=== PATIENT | female | born 1980 | race Caucasian/White ===

== ENCOUNTER → 2020-05-09 11:36 | Outpatient (BNVA) | payer MEDICARE, MEDICAID, SELFPAY | PROVIDERS: Family Provider Family Medicine; Visit Provider Obstetrics & Gynecology | DX: O24.919 Unspecified diabetes mellitus in pregnancy, unspecified trimester (principal); R10.2 Pelvic and perineal pain; N72 Inflammatory disease of cervix uteri; E66.01 Morbid (severe) obesity due to excess calories; Z12.4 Encounter for screening for malignant neoplasm of cervix | CPT/HCPCS: 81000; 83036; 83525; 84443; 88175 ==

== ENCOUNTER → 2020-05-25 10:26 | Outpatient (BNVA) | payer MEDICARE, MEDICAID, SELFPAY | PROVIDERS: Family Provider Family Medicine; Visit Provider Obstetrics & Gynecology | DX: E66.01 Morbid (severe) obesity due to excess calories (principal) | CPT/HCPCS: 76830; 83525 ==

== ENCOUNTER → 2020-05-28 13:53 | Outpatient (BNVA) | payer MEDICARE, MEDICAID, SELFPAY | PROVIDERS: Family Provider Family Medicine; Visit Provider Obstetrics & Gynecology | DX: R87.620 Atypical squamous cells of undetermined significance on cytologic smear of vagina (ASC-US) (principal) | CPT/HCPCS: 88305 ==

== ENCOUNTER → 2020-09-05 09:52 | Outpatient (BNVA) | payer MEDICARE, MEDICAID, SELFPAY | PROVIDERS: Family Provider Family Medicine; Visit Provider Obstetrics & Gynecology | DX: E28.2 Polycystic ovarian syndrome (principal); R10.2 Pelvic and perineal pain; R87.610 Atypical squamous cells of undetermined significance on cytologic smear of cervix (ASC-US); E66.01 Morbid (severe) obesity due to excess calories | CPT/HCPCS: 76830 ==

== ENCOUNTER → 2022-06-09 08:33 | Outpatient (BNVA) | payer MEDICARE, MEDICAID, SELFPAY | PROVIDERS: Family Provider Family Medicine; Visit Provider Nurse Practitioner Women's Health | DX: Z01.419 Encounter for gynecological examination (general) (routine) without abnormal findings (principal) | CPT/HCPCS: 87624 ==

== ENCOUNTER 2022-06-19 10:19 | Outpatient (CLI) | payer MEDICARE, MEDICAID, SELFPAY ==
--- NOTE | 2022-06-19 10:36 | MM_ITS ---
WS: [id number] BILATERAL SCREENING DIGITAL TOMOSYNTHESIS MAMMOGRAM WITH CAD HISTORY: Z12.39 - Encounter for other screening for malignant neoplasm... COMPARISON: None available. Bilateral CC and MLO views with tomosynthesis and synthetic mammography submitted. Computer aided det ection analyzed. Breast composition: There are scattered areas of fibroglandular density. No suspicious masses, microc alcifications or architectural distortion. MM/[id number] IMPRESSION: BI-RADS: 1-Negative FOLLOW UP: 1 Year Follow-up
== END 2022-06-19 10:20 | disposition home or self-care (01) ==
LOC: RAD 10:27
PROVIDERS: PCP Family Medicine; Visit Provider Nurse Practitioner Women's Health
DX: Z12.31 Encounter for screening mammogram for malignant neoplasm of breast (principal)
CPT/HCPCS: 77063; 77067; 87624

== ENCOUNTER → 2023-06-09 10:28 | Outpatient (BNVA) | payer MEDICARE, MEDICAID, SELFPAY | PROVIDERS: PCP Family Medicine; Visit Provider Nurse Practitioner Women's Health | DX: N83.202 Unspecified ovarian cyst, left side (principal); Z98.890 Other specified postprocedural states | CPT/HCPCS: 76830 ==

== ENCOUNTER → 2023-07-14 10:22 | Outpatient (BNVA) | payer MEDICARE, MEDICAID, SELFPAY | PROVIDERS: PCP Family Medicine; Visit Provider Nurse Practitioner Women's Health | DX: N83.202 Unspecified ovarian cyst, left side (principal); Z98.890 Other specified postprocedural states | CPT/HCPCS: 76830 ==

== ENCOUNTER 2023-09-04 15:24 | Outpatient (CLI) | payer MEDICARE, SELFPAY ==
--- NOTE | 2023-09-04 15:26 | MM_ITS ---
WS: [id number] BILATERAL SCREENING DIGITAL TOMOSYNTHESIS MAMMOGRAM WITH CAD HISTORY: SCREENING COMPARISON: 06/19/2022 Bilateral CC and MLO views with tomosynthesis and synthetic mammography submitted. Computer aided det ection analyzed. Breast composition: There are scattered areas of fibroglandular density. No suspicious masses, microc alcifications or architectural distortion. MM/[id number] IMPRESSION: BI-RADS: 1-Negative FOLLOW UP: 1 Year Follow-up
== END 2023-09-04 15:25 | disposition home or self-care (01) ==
PROVIDERS: PCP Family Medicine; Visit Provider Family Medicine
DX: Z12.31 Encounter for screening mammogram for malignant neoplasm of breast (principal)
CPT/HCPCS: 77063; 77067

== ENCOUNTER 2023-11-03 15:54 | Outpatient (RCR) | payer MEDICARE, MEDICAID, SELFPAY | END 2023-11-07 18:00 | disposition home or self-care (01) | LOC: SPT 15:54 | PROVIDERS: Visit Provider Obstetrics & Gynecology | DX: M62.89 Other specified disorders of muscle (principal); M62.838 Other muscle spasm | CPT/HCPCS: 97161 ==

== ENCOUNTER 2023-11-08 06:30 | Outpatient (RCR) | payer MEDICARE, MEDICAID, SELFPAY | END 2023-11-25 23:59 | disposition home or self-care (01) | LOC: SPT 06:30 | PROVIDERS: Visit Provider Obstetrics & Gynecology | DX: M62.89 Other specified disorders of muscle (principal) | CPT/HCPCS: 97530 ==

== ENCOUNTER 2024-02-21 13:07 | Inpatient (IN) | payer MEDICARE, MEDICAID, SELFPAY ==
[2024-02-21] VITALS (11 sets, daily range): BP systolic 147–180; BP diastolic 67–120; PULSE 72–107; RESP 12–19; TEMP 36.6–37.4; O2SAT 96–100; BMI 26.5
[2024-02-21 13:24] LABS: Glucose Point of Care 108 mg/dL (70-110)
--- NOTE | 2024-02-21 13:25 | XRR_ITS ---
PROCEDURE INFORMATION: Exam: XR Chest Exam date and time: 02/21/2024 1:36 PM Age: 43 years old Clinical indication: Other: Weakness TECHNIQUE: Imaging protocol: Radiologic exam of the chest. Views: 1 view. COMPARISON: No relevant prior studies available. FINDINGS: Lungs: Unremarkable. No consolidation. Pleural spaces: Unremarkable. No pleural effusion. No pneumothorax. Heart/Mediastinum: Unremarkable. No cardiomegaly. Bones/joints: Unremarkable. XR/XR chest 1V portable [id number] IMPRESSION: No acute findings.
--- NOTE | 2024-02-21 13:30 | ECG_ITS ---
[facility] Test Date: 2024-02-21 Pat Name: Ashley Sullivan Department: Room: Gender: Female [employer]or: : 1980 Requested By: Bonita Bernard Order Number: [id number] Gaurav MD: Bryan Tarango M.D. Measurements Intervals [place] Rate: 69 P: 68 MO: 148 QRS: 46 QRSD: 85 T: 60 QT: 410 QTc: 441 Interpretive Statements SINUS RHYTHM No previous ECG available for comparison Electronically Signed On 02-21-2024 22:33:19 RN TRANSFER by Bryan Tarango M.D. [id number]
--- NOTE | 2024-02-21 13:30 | CTR_ITS ---
PROCEDURE INFORMATION: Exam: CT Head Without Contrast Exam date and time: 02/21/2024 1:34 PM Age: 43 years old Clinical indication: Stroke-like symptoms; Altered mental status/memory loss and drowsines/somnolence; Additional info: Symptoms of acute stroke TECHNIQUE: Imaging protocol: Computed tomography of the head without contrast. Radiation optimization: All CT scans at this facility use at least one of these dose optimization techniques: automated exposure control; mA and/or kV adjustment per patient size (includes targeted exams where dose is matched to clinical indication); or iterative reconstruction. Other technique: STROKE PROTOCOL was implemented. COMPARISON: No relevant prior studies available. RADIATION DOSE METRICS: Total DLP (mGy-cm): 1033.58 FINDINGS: Brain: No hemorrhage. Unremarkable white matter. No mass effect. Cerebral ventricles: No ventriculomegaly. Paranasal sinuses: Visualized sinuses are unremarkable. No fluid levels. Mastoid air cells: Visualized mastoid air cells are well aerated. Bones: Unremarkable. No acute fracture. Soft tissues: Unremarkable. CT/CT head thrombolytic [id number] IMPRESSION: No acute intracranial abnormality. ASSESSMENT: ASPECTS (Bárbara Stroke Program Early CT Score) is 10.
--- NOTE | 2024-02-21 13:33 | W.ED.WEAKNES ---
HPI - Weakness General: Chief complaint: Weakness Stated complaint: weakness, tingling in rt arm Time Seen by Provider: 02/21/24 13:24 Source: patient Mode of arrival: ambulatory Limitations: no limitations History of Present Illness: 43-year-old female is here with multiple complaints she states she has not felt well since Thursday states she has had generalized fatigue she has been having some diffuse abdominal cramping low-grade fevers and weakness. Patient states she woke up this morning was having some numbness and weakness states she got a fight with her dad while they are trying to find the ER and had sudden onset of not able to move her legs or walk and slurred speech. She states she is also has had headaches. Associated symptoms: Denies chest pain, chills, fever(s), headache(s), nausea or vomiting Review of Systems Const: Reports: fatigue and malaise; Denies: fever(s), chills, body aches or change in appetite Eyes: Denies: blurry vision or eye discomfort ENMT: Denies: throat pain or dental pain Card: Denies: chest pain Resp: Denies: dyspnea GI: Denies: abdominal pain, nausea, vomiting or diarrhea Musc: Denies: neck pain or back pain Skin/Breast: Denies: rash Neuro: Reports: numbness in extremities, weakness in extremities and Slurred speech present; Denies: headache(s) PFS ED PFSH: Family History Mother Hypertension Grandmother Uterine cancer paternal Diabetes maternal Ovarian cyst maternal Father Hypertension Denies family history of Clotting disorder Hyperlipidemia Chronic kidney disease (CKD) Anesthesia complication Bleeding disorder Cancer Stroke Social History Smoking and tobacco/nicotine status: light tobacco/nicotine user Physical Exam Const: COMMON NORMALS: patient oriented x3 and alert ORIENTATION/CONSCIOUSNESS: Yes oriented to person, Yes oriented to place and Yes oriented to time HENMT: COMMON NORMALS: normocephalic and atraumatic HEAD & SCALP: normocephalic and atraumatic Eye: COMMON NORMALS: Equal, round and reactive pupils present and EOMs intact bilaterally PUPIL: Yes Equal, round and reactive pupils present Neck/C-Spine: COMMON NORMALS: full ROM and supple Chest: COMMONS NORMALS: normal inspection of the chest and normal palpation of entire chest wall Resp: COMMON NORMALS: normal respiratory effort, No retractions, No use of accessory muscles and clear to auscultation bilaterally AUSCULTATION: clear to auscultation bilaterally Cardio: COMMON NORMALS: regular rate, regular rhythm and No murmurs present (Cardio) RATE: regular rate RHYTHM: regular rhythm GI: COMMON NORMALS: Normal to inspection, nondistended, normoactive bowel sounds present, Soft to palpation, non-tender and no masses PALPATION: Yes Soft to palpation Extremity: COMMON NORMALS: normal to inspection and full ROM Neuro: COMMON NORMALS: patient oriented x3 and deep tendon reflexes 2+ bilaterally SENSORIUM/ORIENTATION: Yes alert, Yes oriented to person, Yes oriented to place and Yes oriented to time CRANIAL NERVES: Yes CN normal except as noted Psych: COMMON NORMALS: mental status grossly normal, Normal thought process present and cooperative THOUGHT PROCESS: Normal thought process present Skin: COMMON NORMALS: no rashes or lesions noted and no wounds GENERAL SKIN EXAM: no rashes or lesions noted Procedures Lumbar Puncture Time Out Performed: Yes Patient Position: left lateral decubitus Skin Prep: Povidone-Iodine 1% Local Anesthetic: lidocaine 1% Amount of anesthesia used (mL): 4 Spinal Needle Gauge: 22G Interspace Used: L4-L5 Fluid Initially Obtained: clear Complications: none Course Vital Signs: Vital signs: Vital Signs Temperature 98.6 F 02/21/24 17:30 Pulse Rate 75 02/21/24 14:50 Respiratory Rate 12 02/21/24 14:50 Blood Pressure 174/100 02/21/24 15:45 Pulse Oximetry 96 02/21/24 16:30 Oxygen Delivery Me thod Room Air 02/21/24 13:11 MDM - Weakness Medical Decision Making Patient presents here with generalized weakness not feeling well then after getting argument she had onset of diffuse weakness and some right-sided facial paresthesias. Patient was evaluated by neuro she is not a lytic candidate her head CT CTA is normal he did recommend admission for MRI she has had some headaches does have an elevated white count did perform an LP no whites were seen spoke to the hospitalist will admit at this time. Medical Records I reviewed the patient's medical records. Lab Data I reviewed the patient's lab results. 02/21/24 13:55 02/21/24 17:05 Radiology Impressions Chest X-Ray 02/21/24 13:25 IMPRESSION: No acute findings. Head CT 02/21/24 13:30 IMPRESSION: No acute intracranial abnormality. ASSESSMENT: ASPECTS (Bárbara Stroke Program Early CT Score) is 10. ADDENDUM: 02/21/24 1348 THIS REPORT CONTAINS FINDINGS THAT MAY BE CRITICAL TO PATIENT CARE. The findings were verbally communicated via telephone conference with TIFFANY Chance at 1:46 PM [employer] on 02/21/2024. The findings were acknowledged and understood. Head/Neck CTA 02/21/24 14:43 IMPRESSION: No large vessel stenosis or occlusion. IMPRESSION: No stenosis or occlusion. REFERENCES: NASCET CRITERIA. The degree of stenosis in the cervical segment of the internal carotid artery is based on NASCET criteria. Normal is no stenosis. Mild is less than 50% stenosis. Moderate is 50-69% stenosis. Severe is 70% to 99% stenosis. Total occlusion is no detectable patent lumen. ADDENDUM: 02/21/24 1530 THIS REPORT CONTAINS FINDINGS THAT MAY BE CRITICAL TO PATIENT CARE. The findings were verbally communicated via telephone conference with TIFFANY CHANCE at 3:27 PM [employer] on 02/21/2024. The findings were acknowledged and understood. ADDENDUM: 02/21/24 1547 THIS REPORT CONTAINS FINDINGS THAT MAY BE CRITICAL TO PATIENT CARE. The findings were verbally communicated via telephone conference with TIFFANY BAEZ at 3:44 PM [employer] on 02/21/2024. The findings were acknowledged and understood. Laboratory Results WBC 23.90 10^3/uL (3.29-11.43) H 02/21/24 13:55 RBC 5.31 10^6/uL (3.85-5.65) 02/21/24 13:55 Hgb 16.20 g/dL (11.27-16.99) 02/21/24 13:55 Hct 46.5 % (36-47) 02/21/24 13:55 MCV 87.6 fl (85-98) 02/21/24 13:55 MCH 30.5 pg (27-33) 02/21/24 13:55 MCHC 34.8 g/dL (30-55) 02/21/24 13:55 RDW 12.5 % (12.1-15.1) 02/21/24 13:55 Plt Count 444 10^3/cmm (157-399) H 02/21/24 13:55 MPV 9.4 fL (7.4-10.4) 02/21/24 13:55 Neut % (Auto) 78.3 % 02/21/24 13:55 Lymph % (Auto) 13.0 % 02/21/24 13:55 Sullivan % (Auto) 7.9 % 02/21/24 13:55 Eos % (Auto) 0.0 % 02/21/24 13:55 Baso % (Auto) 0.3 % 02/21/24 13:55 Neut # (Auto) 18.71 10^3/uL (1.8-7.7) H 02/21/24 13:55 Lymph # (Auto) 3.1 10^3/uL (0.8-4.8) 02/21/24 13:55 Sullivan # (Auto) 1.9 10^3/uL (0.2-0.9) H 02/21/24 13:55 Eos # (Auto) 0.0 10^3/uL (0.0-0.8) 02/21/24 13:55 Baso # (Auto) 0.1 10^3/uL (0.0-0.1) 02/21/24 13:55 Nucleated RBC % (auto) 0 % 02/21/24 13:55 Nucleated RBCs # 0.0 /100WBC 02/21/24 13:55 PT Cancelled 02/21/24 13:55 INR Cancelled 02/21/24 13:55 APTT Cancelled 02/21/24 13:55 Sodium 137 mmol/L (136-145) 02/21/24 17:05 Potassium Cancelled 02/21/24 13:55 Chloride Cancelled 02/21/24 13:55 Carbon Dioxide 22 mmol/L (22-29) 02/21/24 17:05 Anion Gap Cancelled 02/21/24 13:55 BUN 9 mg/dL (6-20) 02/21/24 17:05 Creatinine 0.5 mg/dL (0.5-0.9) 02/21/24 17:05 GFR Calculation Cancelled 02/21/24 13:55 Glucose 94 mg/dL (65-115) 02/21/24 17:05 POC Glucose 108 mg/dL (70-110) 02/21/24 13:20 Calculated Osmolality Cancelled 02/21/24 13:55 Calcium 9.5 mg/dL (8.5-10.5) 02/21/24 17:05 Total Bilirubin Cancelled 02/21/24 13:55 AST Cancelled 02/21/24 13:55 ALT 14 U/L (0-33) 02/21/24 17:05 Alkaline Phosphatase Cancelled 02/21/24 13:55 Total Protein 7.6 g/dL (6.6-8.7) 02/21/24 17:05 Albumin 4.5 g/dL (3.5-5.2) 02/21/24 17:05 Globulin 3.1 g/dL (1.3-4.6) 02/21/24 17:05 TSH 1.66 uIU/mL (0.27-4.20) 02/21/24 17:05 HCG, Qual Negative (Negative) 02/21/24 13:55 CSF Appearance Clear (CLEAR) 02/21/24 16:01 CSF Color Colorless (COLORLESS) 02/21/24 16:01 CSF WBC 2 /uL (0-5) 02/21/24 16:01 CSF RBC 1 10^3/uL (0-0) H 02/21/24 16:01 CSF Mononuclear # Auto 0.001 10^3/uL (50-90) L 02/21/24 16:01 CSF Mononuclear WBCs % 50 % (50-90) 02/21/24 16:01 CSF Polynuclear WBCs # 0.001 10^3/uL (0-10) 02/21/24 16:01 CSF Polynuclear WBCs % 50 % (0-10) H 02/21/24 16:01 CSF Diff Comment Yes 02/21/24 16:01 CSF Glucose 57 mg/dL (40-70) 02/21/24 16:01 CSF Total Protein 36 mg/dL (15-45) 02/21/24 16:01 All radiology interpretation(s) finalized by discharge EKG Data EKG 1: I personally reviewed and interpreted this EKG as follows: EKG interpretation date: 02/21/24 EKG interpretation time: 13:30 Interpretation: nsr hr [address] or t wave abnormalities qrs 85 qtc 429 Discharge Plan Discharge Patient Disposition: Admitted As Inpatient Clinical Impression: Generalized weakness, Paresthesias, Leukocytosis Condition: Stable Prescriptions: No Action albuterol sulfate 90 mcg/actuation HFA aerosol inhaler 2 puff inhalation Q6H PRN solifenacin [Vesicare] 5 mg tablet 5 mg PO DAILY Qty: 30 0RF gjjzszudio-hvwvrwmhuckva-yxyk 50-325-40 mg tablet 1 tab PO Q4H PRN diclofenac sodium 75 mg tablet,delayed release (DR/EC) 75 mg PO BID hydroxyzine pamoate [Vistaril] 25 mg capsule 25 mg PO BID PRN tizanidine [Zanaflex] 4 mg capsule 4 mg PO TID PRN Ozempic 1 mg/dose (4 mg/3 mL) pen injector SUBCUT .once weekly Coding Level of Care Code ED Planning Associate for Chg Fwd Related Data Home Medications Medication Instructions Recorded Confirmed albuterol sulfate 90 mcg/actuation 2 puff inhalation Q6H PRN 05/09/20 11/17/23 aerosol inhaler dianqvyxrz-hnfroudwxqiqu-xovbuxll 1 tab PO Q4H PRN 06/09/22 11/17/23 50 mg-325 mg-40 mg tablet diclofenac sodium 75 mg 75 mg PO BID 06/09/22 11/17/23 tablet,delayed release hydroxyzine pamoate 25 mg capsule 25 mg PO BID PRN 06/09/22 11/17/23 (Vistaril) tizanidine 4 mg capsule (Zanaflex) 4 mg PO TID PRN 06/09/22 11/17/23 semaglutide 1 mg/dose (4 mg/3 mL) mg SUBCUT .once weekly 07/14/23 11/17/23 subcutaneous pen injector (Ozempic) Previous Rx's Medication Instructions Recorded solifenacin 5 mg tablet (Vesicare) 5 mg PO DAILY #30 tabs 07/21/23 Allergies Allergy/AdvReac Type Severity Reaction Status Date / Time No Known Allergies Allergy Verified 02/21/24 13:21 NIH stroke score NIHSS Level Of Consciousness - 1a: 0 Level Of Consciousness Questions - 1b: Both Correct Level Of Consciousness Commands - 1c: Both Correct Best Gaze - 2: Normal Visual Harkins - 3: No Visual Loss Facial Palsy - 4: Minor Paralysis Motor Arm Right - 5: No Drift Motor Arm Left - 5: No Drift Motor Leg Right - 6: Drift Motor Leg Left - 6: Drift Limb Ataxia - 7: Absent Sensory - 8: Normal Best Language - 9: No Aphasia Dysarthia - 10: Mild/Moderate Dysarthia Extinction And Inattention - 11: 0 Score Total Score: 4
[2024-02-21 14:10] LABS: Basophils # 0.1 10^3/uL (0.0-0.1); Basophils % 0.3 %; Hematocrit 46.5 % (36-47); Lymphocytes # 3.1 10^3/uL (0.8-4.8); Mean Corpuscular HGB Conc 34.8 g/dL (30-55); Mean Corpuscular Hemoglobin 30.5 pg (27-33); Mean Corpuscular Volume 87.6 fl (85-98); Mean Platelet Volume 9.4 fL (7.4-10.4); Monocytes # 1.9 10^3/uL (0.2-0.9); Monocytes % 7.9 %; Neutrophils # 18.71 10^3/uL (1.8-7.7); Neutrophils % 78.3 %; Nucleated Red Blood Cells % 0 %; Platelet Count 444 10^3/cmm (157-399); Red Blood Count 5.31 10^6/uL (3.85-5.65); Red Cell Distribution Width 12.5 % (12.1-15.1)
[2024-02-21 14:33] LABS: HCG, Serum Qual Negative (Negative)
--- NOTE | 2024-02-21 14:43 | CTR_ITS ---
PROCEDURE INFORMATION: Exam: CTA Head With Contrast, Arteriography Exam date and time: 02/21/2024 2:59 PM Age: 43 years old Clinical indication: Stroke-like symptoms; Altered mental status/memory loss; Additional info: CVA TECHNIQUE: Imaging protocol: Computed tomographic angiography of the head with contrast. Exam focused on the arteries. 3D rendering (Not supervised by radiologist): MIP and/or 3D reconstructed images were created by the technologist. Radiation optimization: All CT scans at this facility use at least one of these dose optimization techniques: automated exposure control; mA and/or kV adjustment per patient size (includes targeted exams where dose is matched to clinical indication); or iterative reconstruction. Contrast material: OMNIPAQUE 350; Contrast volume: 100 ml; Contrast route: INTRAVENOUS (IV); COMPARISON: CT head thrombolytic [id number] 02/21/2024 1:34 PM RADIATION DOSE METRICS: Total DLP (mGy-cm): 485.2 FINDINGS: ANTERIOR CIRCULATION: Right internal carotid artery: Intracranial segment is patent with no significant stenosis. No aneurysm. Right middle cerebral artery: No occlusion or significant stenosis. No aneurysm. Right anterior cerebral artery: No occlusion or significant stenosis. No aneurysm. Left internal carotid artery: Intracranial segment is patent with no significant stenosis. No aneurysm. Left middle cerebral artery: No occlusion or significant stenosis. No aneurysm. Left anterior cerebral artery: No occlusion or significant stenosis. No aneurysm. POSTERIOR CIRCULATION: Right vertebral artery: No occlusion or significant stenosis. No aneurysm. Left vertebral artery: No occlusion or significant stenosis. No aneurysm. Basilar artery: No occlusion or significant stenosis. No aneurysm. Right posterior cerebral artery: No occlusion or significant stenosis. No aneurysm. Left posterior cerebral artery: No occlusion or significant stenosis. No aneurysm. Brain: No definite mass, mass effect, or midline shift. Cerebral ventricles: No ventriculomegaly. Bones/joints: Unremarkable. Soft tissues: Unremarkable. PROCEDURE INFORMATION: Exam: CTA Neck With Contrast Exam date and time: 02/21/2024 2:59 PM Age: 43 years old Clinical indication: Stroke-like symptoms; Altered mental status/memory loss; Additional info: CVA TECHNIQUE: Imaging protocol: Computed tomographic angiography of the neck with contrast. Exam focused on the cervical segments of the vasculature. 3D rendering (Not supervised by radiologist): MIP and/or 3D reconstructed images were created by the technologist. Radiation optimization: All CT scans at this facility use at least one of these dose optimization techniques: automated exposure control; mA and/or kV adjustment per patient size (includes targeted exams where dose is matched to clinical indication); or iterative reconstruction. Contrast material: OMNIPAQUE 350; Contrast volume: 100 ml; Contrast route: INTRAVENOUS (IV); COMPARISON: CT head thrombolytic [id number] 02/21/2024 1:34 PM RADIATION DOSE METRICS: Total DLP (mGy-cm): 485.2 FINDINGS: Right common carotid artery: No stenosis. No dissection or occlusion. Right internal carotid artery: No stenosis of the extracranial segment. No dissection or occlusion. Right external carotid artery: No occlusion or stenosis of the origin. Left common carotid artery: No stenosis. No dissection or occlusion. Left internal carotid artery: No stenosis of the extracranial segment. No dissection or occlusion. Left external carotid artery: No occlusion or stenosis of the origin. Right vertebral artery: No stenosis. No dissection or occlusion. Left vertebral artery: No stenosis. No dissection or occlusion. Soft tissues: Minimal right apical subpleural cystic changes. No significant soft tissue swelling. Bones/joints: No acute fracture. CT/CT angio headneck* [id number] IMPRESSION: No large vessel stenosis or occlusion. IMPRESSION: No stenosis or occlusion. REFERENCES: NASCET CRITERIA. The degree of stenosis in the cervical segment of the internal carotid artery is based on NASCET criteria. Normal is no stenosis. Mild is less than 50% stenosis. Moderate is 50-69% stenosis. Severe is 70% to 99% stenosis. Total occlusion is no detectable patent lumen.
[2024-02-21] MEDS: aspirin 81 mg Chew Tablet 324 MG PO (14:55)
[2024-02-21] MEDS: iohexol 350 mg/mL 500 mL Btl (per mL) IV (15:03)
[2024-02-21] MEDS: metoclopramide 5 mg/mL SDV 2 mL 10 MG IVP (15:19)
[2024-02-21] MEDS: diphenhydrAMINE 50 mg/mL SDV 1mL IVP (15:19)
[2024-02-21 16:08] LABS: Cyto Order Verification No Order
[2024-02-21 16:20] LABS: Appearance CSF CLEAR (CLEAR); Color CSF COLORLESS (COLORLESS)
[2024-02-21 16:21] LABS: CSF Mononuclear # 0.001 10^3/uL (50-90); Mononuclear WBC CSF % 50 % (50-90); Polynuclear Cells ,CSF # 0.001 10^3/uL (0-10); Polynuclear WBC CSF % 50 % (0-10); Red Blood Cell CSF 1 10^3/uL (0-0); White Blood Cell CSF 2 /uL (0-5)
[2024-02-21 16:22] LABS: Pathology Referral Yes
[2024-02-21 16:36] LABS: Glucose CSF 57 mg/dL (40-70); Total Protein CSF 36 mg/dL (15-45)
--- NOTE | 2024-02-21 17:32 | P.HP_ITS ---
Providers/Chief Complaint 2 Chief Complaint: weakness, tingling in rt arm History of Present Illness Ashley Sullivan is a 43 year old female who is presenting to the ER today with neurological symptoms. She started feeling sick on Thursday (today is Thursday) when she developed abdominal pain, and dry heaving. She thought she had viral gastritis as her father had been experiencing similar symptoms. SHe was taken to ER on Thursday and was discharged from there. She was coming in to ER here today as she was having persisting symptoms. While outside the hospital, she had a fight with her father in the car related to finding location of the ER. She started o become very angry and felt out of control. Then she developed right side facial numbness and weakness. She states she couldnt move her arms and legs and needed 2 people to get her out of the car. She was like a statue . Her speech remained clear though pressured. This was a new change for her. She has never had symptoms like this before. She has been under a lot of stress recently going througha divorce. She startefd to cry during the interview, then seen becoming angry and agitated that her ex wont leave her alone . she is currently living with her parents. she then starts to cry because her mom has been diagnosed with a brain blockage and needs an mri. she becomes tearful , brings her hands to her face, covers her face ans states she doesnt want her mom to . Her sister is currently going through a divorce and seeing her in this situation is triggering a PTSD for her. She requests diazpeam and tizanidine. she keeps crying stating she is under a lot of stress and that its all too much . Her mother states she has been under tremendous stress recently. PMH of being on semaglutide for weight loss, h/o hysterectomy several years ago, h/o ovarian cyts . no known h/o stroke, a afib, HTN h/o dyslipidemia + Review of Systems 2 General: Reports: 10 or more systems reviewed and unremarkable except in HPI and below Const: Denies: fever(s), chills or body aches Eyes: Denies: change in vision, blurry vision or photophobia ENMT: Reports: hoarseness; Denies: throat pain, enlarged tonsils, odynophagia or nasal congestion Card: Denies: chest pain, palpitations, irregular heart rhythm, edema, swelling of feet/ankles, lightheadedness, pre-syncope, dyspnea on exertion or orthopnea Resp: Denies: dyspnea, productive cough, non-productive cough, wheezing, stridor, pain on inspiration, change in phlegm color, hemoptysis or chest congestion GI: Denies: abdominal pain, nausea, vomiting, hematemesis, coffee ground emesis, dysphagia, heartburn, diarrhea, constipation, GI cramping, change in stool character, hematochezia or melena : Denies: flank pain, difficulty voiding, dysuria, urinary frequency, urinary urgency, urinary hesitancy or hematuria Musc: Denies: neck pain, back pain, extremity pain, joint swelling, joint warmth or deformity Neuro: Denies: headache(s), numbness in extremities, weakness in extremities, sensory changes, difficulty walking, frequent falls, dizziness, vertigo, behavioral changes, Slurred speech present or seizure-like activity Psych: Denies: anxiety, depression, suicidal ideation or homicidal ideation Endo: Denies: polyuria, polydipsia, tired all the time, cold intolerance or hot flashes Darvin/Lymph: Denies: easy bruising or easy bleeding Medications/Allergies Home Medications Medication Instructions Recorded Confirmed Last Taken Type albuterol sulfate 90 mcg/actuation 2 puff inhalation Q6H PRN 05/09/20 02/22/24 Unknown History aerosol inhaler Shortness Of Breath [id number]-creubecsscstp-[id number] 1 tab PO Q4H PRN Headache 06/09/22 02/22/24 Unknown History 50 mg-325 mg-40 mg tablet diclofenac sodium 75 mg 75 mg PO BID PRN Pain 06/09/22 02/22/24 Unknown History tablet,delayed release hydroxyzine pamoate 25 mg capsule 25 mg PO BID PRN Anxiety 06/09/22 02/22/24 Unknown History (Vistaril) tizanidine 4 mg capsule (Zanaflex) 4 mg PO TID PRN Spasms 06/09/22 02/22/24 Unknown History semaglutide 1 mg/dose (4 mg/3 mL) 2 mg SUBCUT .once weekly 07/14/23 02/22/24 02/16/24 History subcutaneous pen injector (Ozempic) famotidine 20 mg tablet 20 mg PO DAILY PRN Acid Reflux 02/22/24 02/22/24 Unknown History pravastatin 40 mg tablet 40 mg PO BEDTIME 02/22/24 02/22/24 Unknown History Allergies Allergy/AdvReac Type Severity Reaction Status Date / Time No Known Allergies Allergy Verified 02/21/24 13:21 PFSH Acute 2 PFSH: Family History Mother Hypertension Grandmother Uterine cancer paternal Diabetes maternal Ovarian cyst maternal Father Hypertension Denies family history of Clotting disorder Hyperlipidemia Chronic kidney disease (CKD) Anesthesia complication Bleeding disorder Cancer Stroke Social History Smoking and tobacco/nicotine status: light tobacco/nicotine user Vitals/I&O/Wt Last Vital Signs Temp 97.9 F 02/21/24 13:11 Pulse 75 02/21/24 14:50 Resp 12 02/21/24 14:50 BP 174/100 02/21/24 15:45 Pulse Ox 96 02/21/24 16:30 O2 Del Method Room Air 02/21/24 13:11 02/21/24 02/21/24 02/21/24 06:59 14:59 22:59 Intake Total 0 / 0 Balance 0 / 0 Weight last 48 hrs Weight 83.915 kg Physical Exam 2 Narrative: General: No acute distress, AO x3 HEENT: PERRLA, pupils bilaterally equal and reactive, pallors not present Chest: Normal vesicular breath sounds, no added sounds, equal good air entry bilaterally CVS: S1-S2 regular, no murmurs, no tachycardia, no gallops, no rubs Abdomen: Soft, nontender, no organomegaly, bowel sounds present Neuro: pressured slow speech, no slurring, content intelligle Data 02/22/24 04:46 02/22/24 04:46 A&P Assessment and plan (1) TIA (transient ischemic attack): possible stroke/ TIA At the time of this assessment no focal motor deficits. Speech is pressured, almost robotic, content is understandable and relevant. Multiple times during course of the conversation, patient starts to hyperventilate and then resumes talking again. She states she is angry during those episodes of hyperventilation. Saturation is well-maintained. No signs of respiratory distress Admit for neuro monitoring She is not a TNK or embolectomy candidate -Case has been discussed with neurology at [facility] by ER physician. No convincing neurological deficits at this time Continue telemetry monitoring on the unit to evaluate for underlying arrhythmias. CT head unremarkable CTA head and neck without any major vessel occlusion. Echocardiogram ordered and pending Start aspirin 81 mg daily Atorvastatin 40 mg daily PT OT speech therapy assessment Obtain MRI of the head (2) Leukocytosis: Unclear cause at this time. She has been complaining of multiple episodes of nausea and vomiting Will check CT abdomen Chest x-ray without any acute findings. Check urine analysis and if positive urine culture. Abdominal exam is benign. No localizing signs or symptoms. May be related to dehydration versus acute stress reaction. Encouraged to take p.o. intake. 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 If MRI without any signs of organic neurological cause, will obtain psychiatry consult Attestations 2 Medical Necessity Statement*: Currently anticipating less than 2 midnight stay Coding Level of Care Code Acute Code for [facility] Fwd Diagnoses TIA (transient ischemic attack) G45.9 Leukocytosis D72.829 Conversion disorder F44.9
[2024-02-21 17:37] LABS: Alanine Aminotransferase 14 U/L (0-33); Albumin Level 4.5 g/dL (3.5-5.2); Alkaline Phosphatase 107 U/L (35-105); Blood Urea Nitrogen 9 mg/dL (6-20); Calcium 9.5 mg/dL (8.5-10.5); Carbon Dioxide 22 mmol/L (22-29); Chloride 96 mmol/L (98-107); Creatinine Clr Calc Pharmacy 172.7688; Globulin 3.1 g/dL (1.3-4.6); Glomerular Filtration Rate 135.3 mL/min (90-130); Glucose 94 mg/dL (65-115); Osmolality Calculated 282 mOsm/kg (285-295); Sodium 137 mmol/L (136-145); Thyroid Stimulating Hormone 1.66 uIU/mL (0.27-4.20); Total Bilirubin 1.3 mg/dL (0.15-1.2); Total Protein 7.6 g/dL (6.6-8.7)
[2024-02-21 17:39] LABS: Anion Gap 22.4 (5-19); Aspartate Amino Transferase 13 U/L (0-32); Potassium 3.4 mmol/L (3.5-5.1)
[2024-02-21 17:46] LABS: INR 1.01 (0.8-1.2); Partial Thromboplastin Time 26.4 SECONDS (23.9-36.7)
--- NOTE | 2024-02-21 18:34 | CTR_ITS ---
PROCEDURE INFORMATION: Exam: CT Abdomen And Pelvis Without Contrast Exam date and time: 02/21/2024 9:28 PM Age: 43 years old Clinical indication: Abdominal pain; Patient HX: Diffuse abd pain; N/v; Leukocytosis; HX ovarian cysts; Additional info: Abdominal pain, abdominal pain, nausea, leukocytosis - h/o ovarian cysts . TECHNIQUE: Imaging protocol: Computed tomography of the abdomen and pelvis without contrast. Radiation optimization: All CT scans at this facility use at least one of these dose optimization techniques: automated exposure control; mA and/or kV adjustment per patient size (includes targeted exams where dose is matched to clinical indication); or iterative reconstruction. COMPARISON: US transvaginal [id number] 07/14/2023 10:26 AM RADIATION DOSE METRICS: Total DLP (mGy-cm): 661.53 FINDINGS: Liver: Normal. No mass. Gallbladder and biliary ducts: Normal. No calcified stones. No ductal dilation. Pancreas: Normal. No ductal dilation. Spleen: Normal. No splenomegaly. Adrenal glands: Normal. No mass. Kidneys and ureters: Normal. No hydronephrosis. Stomach and bowel: Unremarkable. No obstruction. No mucosal thickening. Appendix: No evidence of appendicitis. Intraperitoneal space: Unremarkable. No free air. No significant fluid collection. Vasculature: Unremarkable. No abdominal aortic aneurysm. Lymph nodes: Unremarkable. No enlarged lymph nodes. Urinary bladder: Unremarkable as visualized. Reproductive: Bilateral ovarian cysts measuring 4.2 cm in the right and 2.6 centimeters on the left respectively Bones/joints: Unremarkable. No acute fracture. Soft tissues: Unremarkable. CT/CT abdomen pelvis con [id number] IMPRESSION: No acute findings.
[2024-02-21 19:08] LABS: Chol HDL Ratio 3.02 mg/dL (0.0-4.40); Cholesterol 148 mg/dL (0-200); HDL Cholesterol 49 mg/dL (60-100); LDL Cholesterol Calculated 83 mg/dL (50-129); LDL HDL Ratio 1.69 RATIO (0.00-3.22); Triglycerides 79 mg/dL (0-150)
[2024-02-21] MEDS: atorvastatin 40 mg Tablet PO (20:10)
[2024-02-21] MEDS: ondansetron 4 MG Tablet PO (21:19)
[2024-02-21 21:30] LABS: Estmated Average Glucose 88; Hemoglobin A1C 4.7 % (4.0-6.0)
[2024-02-21] MEDS: diazePAM 5 mg Tablet PO (22:39)
[2024-02-21] MEDS: lidocaine 2% viscous 15 ML, aluminum-mag hydrox-simethicon 30 ML, sucralfate oral liq 1 GM PO (22:39)
[2024-02-21] MEDS: tizanidine 4 mg Tablet PO (22:39)
[2024-02-21 22:52] LABS: Amphetamines Screen Urine Negative (Negative); Barbiturates Screen Urine Positive (Negative); Benzodiazepines Screen Urine Positive (Negative); Bilirubin Urine Negative (Negative); Blood Urine Trace (Negative); Cocaine Screen Urine Negative (Negative); Glucose Urine UA Negative (Normal); Ketones Urine 4+ (Negative); Leukocyte Esterase Urine Negative (Negative); Nitrate Urine Negative (Negative); Opiate Screen Urine Positive (Negative); PCP Screen Urine Negative (Negative); Protein Urine 2+ (Negative); THC Screen Urine Positive (Negative); Urine Appearance Clear (CLEAR); Urine Color Yellow (Yellow)
[2024-02-21 22:57] LABS: Add Urine Microscopic? YES; Bacteria Urine None Seen /hpf; Hyaline Casts Urine 0-4 /lpf; Squamous Epithelial Cell Urine 0-5 /hpf (0-5); WBC Urine 0-5 /hpf (0-5)
[2024-02-21 23:07] LABS: Specific Gravity, Urine 1.084 (1.005-1.030)
[2024-02-22 00:09] VITALS: BP 146/93; PULSE 85; RESP 18; TEMP 37.3; O2SAT 96
[2024-02-22 04:14] VITALS: BP 102/68; PULSE 80; RESP 17; TEMP 37.1; O2SAT 96
[2024-02-22 04:57] LABS: Basophils # 0.1 10^3/uL (0.0-0.1); Basophils % 0.4 %; Eosinophils % 0.1 %; Hematocrit 45.5 % (36-47); Lymphocytes # 4.7 10^3/uL (0.8-4.8); Lymphocytes % 29.1 %; Mean Corpuscular HGB Conc 34.7 g/dL (30-55); Mean Corpuscular Hemoglobin 30.6 pg (27-33); Mean Platelet Volume 8.7 fL (7.4-10.4); Monocytes # 1.6 10^3/uL (0.2-0.9); Monocytes % 10.2 %; Neutrophils # 9.57 10^3/uL (1.8-7.7); Neutrophils % 59.8 %; Nucleated Red Blood Cells % 0 %; Platelet Count 444 10^3/cmm (157-399); Red Blood Count 5.17 10^6/uL (3.85-5.65); Red Cell Distribution Width 12.5 % (12.1-15.1); White Blood Count 16.01 10^3/uL (3.29-11.43)
[2024-02-22 05:20] LABS: Alanine Aminotransferase 13 U/L (0-33); Albumin Level 4.4 g/dL (3.5-5.2); Alkaline Phosphatase 114 U/L (35-105); Anion Gap 18.1 (5-19); Aspartate Amino Transferase 10 U/L (0-32); Blood Urea Nitrogen 10 mg/dL (6-20); Calcium 9.4 mg/dL (8.5-10.5); Carbon Dioxide 26 mmol/L (22-29); Chloride 95 mmol/L (98-107); Creatinine Clr Calc Pharmacy 141.6301; Globulin 2.9 g/dL (1.3-4.6); Glomerular Filtration Rate 109.6 mL/min (90-130); Glucose 101 mg/dL (65-115); Osmolality Calculated 281 mOsm/kg (285-295); Potassium 3.1 mmol/L (3.5-5.1); Sodium 136 mmol/L (136-145); Total Bilirubin 1.3 mg/dL (0.15-1.2); Total Protein 7.3 g/dL (6.6-8.7)
[2024-02-22] MEDS: acetaminophen 325 mg Tablet 650 MG PO ×2 (06:30→20:12)
[2024-02-22] MEDS: tizanidine 4 mg Tablet PO ×2 (06:35→20:12)
[2024-02-22 08:00] VITALS: BP 84/61; PULSE 95; RESP 16; TEMP 36.9; O2SAT 97
[2024-02-22] MEDS: pantoprazole DR 40 mg Tablet PO (08:44)
[2024-02-22] MEDS: aspirin 81 mg EC Tablet PO (08:44)
--- NOTE | 2024-02-22 09:30 | MR_ITS ---
WS: [id number] MRI BRAIN WITHOUT CONTRAST HISTORY: stroke COMPARISON: CT head 02/21/2024 TECHNIQUE: Diffusion imaging, multiplanar T1, T2 and FLAIR imaging obtained. No evidence for acute infarct or hemorrhage. [place]-white matter differentiation is normal. No significant volume loss. Question of very subtle small vessel disease in the RIGHT kapil. No large territory infarct. Ventricles and extra-axial spaces are normal. Mild ectopia of the cerebellar tonsils. Visualized sella turcica and pituitary gland are negative. Dural venous sinuses and [place] demonstrate no abnormality on this unenhanced studies. Paranasal sinuses: Clear. Mastoid air cells: Normal. Calvarium and scalp: Intact. MR/MR head wo con* [id number] IMPRESSION: 1. No diffusion abnormality. No acute infarct identified. 2. Tiny focus of increased signal in the RIGHT kapil. May be associated with mi nimal, chronic small vessel ischemic disease. 3. No significant atrophy.
--- NOTE | 2024-02-22 09:30 | USCV_ITS ---
Laurie Ashley Age: 43 Gender: F : 1980 Exam Date: 02/22/2024 10:08 Ordering Phys: Anne Marie Smith MD Technologist: Exam Location: [facility] [place] Indication: cp sob BP: 120 / 70 HR: 81 Rhythm: Sinus Technical Quality: Adequate MEASUREMENTS (Male / Female) Normal Values 2D ECHO LV Diastolic Diameter PLAX 4.3 cm 4.2 - 5.9 / 3.9 - 5.3 cm IVS Diastolic Thickness 1.2 cm 0.6 - 1.0 / 0.6 - 0.9 cm IVS Systolic Thickness 1.7 cm LVPW Diastolic Thickness 1.2 cm 0.6 - 1.0 / 0.6 - 0.9 cm LVPW Systolic Thickness 1.8 cm LVOT Diameter 2.1 cm LV Ejection Fraction 2D Teich 67.3 % LV Ejection Fraction MOD 4C 51.0 % LV Ejection Fraction MOD 2C 70.5 % LV Ejection Fraction 2C AL 71.8 % LA Diameter 3.3 cm RA Systolic Volume 4C AL 23.8 ml RA Systolic Volume 4C MOD 22.4 ml Aorta at Sinotubular Diameter 2.8 cm M-MODE LA Ao Ratio MM 1.1 AV Cusp Separation MM 2.5 cm DOPPLER AV Peak Velocity 198.0 cm/s AV Area Cont Eq vti 2.6 cm squared AV Area Cont Eq pk 2.3 cm squared MV Peak Velocity 90.0 cm/s MV Area PHT 3.0 cm squared Mitral E to A Ratio 1.0 TV Peak Velocity 190.5 cm/s TR Peak Velocity 237.0 cm/s TR Peak Gradient 22.5 mmHg TV Peak E Velocity 82.0 cm/s PV Peak Velocity 133.0 cm/s FINDINGS Left Ventricle Left ventricle is normal in size. LV systolic function is normal with EF of 65-70%. No regional wall motion abnormalities are seen. Mild concentric LVH Right Ventricle Normal in size and function Right Atrium Normal in size Left Atrium Normal in size Mitral Valve Structurally normal mitral valve. Mild mitral regurgitation. Aortic Valve Structurally normal aortic valve. Elevated LVOT gradients with peak gradient of 41mmHg with valsalva. Resting gradient is normal Tricuspid Valve Insufficient TR jet to calculate RVSP. Pulmonic Valve Not well visualized Pericardium Normal Aorta Normal in size IVC Not well visualized CONCLUSIONS LV systolic function is normal with EF of 65 to 70%. Mild concentric LVH. Mild mitral regurgitation. Elevated LVOT gradients with peak gradient 41 mmHg with Valsalva maneuver. No comparison studies are available. Blas Goodrich MD (Electronically Signed) Final Date: 23 February 2024 09:51 S
[2024-02-22] MEDS: ondansetron 2 mg/ML SDV 2 mL 4 MG IVP (12:33)
--- NOTE | 2024-02-22 12:38 | PC.NURSE ---
Pt called nurse to room for headache and nausea/vomitting. The pt mother stated she feels nausea so she is making herself throw up. This nurse asked pt what symptoms she was having and she states her head hurts and her head was hot. v/s obtained 156/110, 92, 98.3, and 16. The pt kept repeating her Tummy hurt.
[2024-02-22 12:42] VITALS: BP 156/110; PULSE 92; RESP 16; TEMP 36.8; O2SAT 98
--- NOTE | 2024-02-22 14:00 | P.PN_ITS ---
Subjective 2 Subjective: Patient continues to have pressured slow speech. No other focal deficits in the interim. Remains afebrile. This afternoon blood pressure transiently up to 200s systolic, however appears to improve after administration of diazepam. She is requesting GI cocktail, states that her stomach is on fire. Medications: Reviewed: Yes Vitals/I&O/Wt Last Vital Signs Temp 98.0 F 02/23/24 07:49 Pulse 98 02/23/24 07:49 Resp 17 02/23/24 07:49 BP 106/69 02/23/24 07:49 Pulse Ox 97 02/23/24 07:49 O2 Del Method Room Air 02/23/24 07:49 02/22/24 02/23/24 02/23/24 22:59 06:59 14:59 Intake Total 60 / 60 120 / 120 Output Total 150 / 150 Balance -90 / -90 120 / 120 Weight last 48 hrs Weight 84.368 kg Weight 80.876 kg Weight 83.915 kg Weight 83.915 kg Physical Exam 2 Narrative: General: No acute distress, AO x3 HEENT: PERRLA, pupils bilaterally equal and reactive, pallors not present Chest: Normal vesicular breath sounds, no added sounds, equal good air entry bilaterally CVS: S1-S2 regular, no murmurs, no tachycardia, no gallops, no rubs Abdomen: Soft, nontender, no organomegaly, bowel sounds present Neuro: pressured slow speech, no slurring, content intelligle Data 02/22/24 04:46 02/22/24 04:46 Micro: Microbiology 02/22/24 04:40 Blood Culture - Preliminary Blood NEGATIVE TO DATE 02/22/24 04:46 Blood Culture - Preliminary Blood NEGATIVE TO DATE 02/21/24 16:01 Gram Stain - Final Cerebrospinal Fluid CSF Culture - Preliminary Other data: MR/MR head wo con* [id number] IMPRESSION: 1. No diffusion abnormality. No acute infarct identified. 2. Tiny focus of increased signal in the RIGHT kapil. May be associated with minimal, chronic small vessel ischemic disease. 3. No significant atrophy. A&P Assessment and plan (1) TIA (transient ischemic attack): possible stroke/ TIA At the time of this assessment no focal motor deficits. Speech is pressured, almost robotic, content is understandable and relevant. Multiple times during course of the conversation, patient starts to hyperventilate and then resumes talking again. She states she is angry during those episodes of hyperventilation. Saturation is well-maintained. No signs of respiratory distress Admit for neuro monitoring She is not a TNK or embolectomy candidate -Case has been discussed with neurology at [facility] by ER physician. No convincing neurological deficits at this time Continue telemetry monitoring on the unit to evaluate for underlying arrhythmias. CT head unremarkable CTA head and neck without any major vessel occlusion. Echocardiogram ordered and pending Start aspirin 81 mg daily Atorvastatin 40 mg daily PT OT speech therapy assessment Obtain MRI of the head (2) Leukocytosis: Unclear cause at this time. She has been complaining of multiple episodes of nausea and vomiting Will check CT abdomen Chest x-ray without any acute findings. Check urine analysis and if positive urine culture. Abdominal exam is benign. No localizing signs or symptoms. May be related to dehydration versus acute stress reaction. Encouraged to take p.o. intake. 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 If MRI without any signs of organic neurological cause, will obtain psychiatry consult Plan 01/23/2024 No diffusion abnormality. No acute infarct identified on MRI scan today. Findings discussed with neurology at [facility] who still on-call for us today. Nonspecific finding on kapil, may be related to microvascular disease, old changes, recommended outpatient follow-up with neurology. No acute interventions indicated at this time. Given MRI negative for stroke, and clinical exam does not correlate with any features of acute stroke, most likely that her symptoms represent acute conversion disorder. This may have been precipitated by stress. Her mother additionally reports that there has been some strain in the relationship between her and her father additionally. Since coming back to live with them she has had several arguments with her father at home. Will obtain psychiatry consult Leukocytosis trending down to 16,[address] of the abdomen and pelvis reviewed, no acute abnormality. No gallstones or other biliary abnormalities. Chest x-ray is without consolidation. UA not dermatology sales representative of UTI. No localizing signs or symptoms of infection. Blood culture thus far negative Denies any recent changes in her medication or recent steroid use. Would continue to hold off on antibiotics. Patient has remained afebrile and hemodynamically stable. Attestations 2 Medical Necessity Statement*: MRI negative for stroke, psychiatry consult today Coding Level of Care Code Acute Code for [facility] Fwd Moderate MDM includes number and complexity of problems actively addressed during encounter, amount and/or complexity of data reviewed/ordered and described risk of complication, morbidity or mortality of management as documented Diagnoses TIA (transient ischemic attack) G45.9 Leukocytosis D72.829 Conversion disorder F44.9
[2024-02-22] MEDS: lidocaine 2% viscous 15 ML, aluminum-mag hydrox-simethicon 30 ML, sucralfate oral liq 1 GM PO (14:10)
[2024-02-22] MEDS: diazePAM 5 mg Tablet PO ×2 (14:32→20:11)
[2024-02-22 15:27] VITALS: BP 157/97; PULSE 80; RESP 16; TEMP 36.6; O2SAT 96
--- NOTE | 2024-02-22 15:46 | PC.OT ---
OT EVALUATION ATTEMPTED. PATIENT IRRITABLE; MOTHER IS PRESENT AND ANSWERS MOST QUESTIONS. WHEN I ASKED THE PATIENT TO MOVE SHE GRUFFLY STATED, I DON'T FEEL GOOD. I TOLD HER THAT I WOULD RETURN LATER IN THE AFTERNOON. WHEN EVALUATION ATTEMPTED IN LATE AFTERNOON, THE PATIENT WAS SLEEPING SOUNDLY. WILL ATTEMPT AGAIN TOMORROW.
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
[2024-02-22] MEDS: atorvastatin 40 mg Tablet PO (20:12)
[2024-02-22 20:58] VITALS: BP 154/92; PULSE 101; RESP 16; TEMP 37.2; O2SAT 96
[2024-02-23] VITALS: BP 117/70; PULSE 101; RESP 17; TEMP 36.4; O2SAT 98
[2024-02-23 04:00] VITALS: BP 109/71; PULSE 105; RESP 16; TEMP 36.7; O2SAT 97
[2024-02-23 06:00] VITALS: BMI 26.6
[2024-02-23 07:49] VITALS: BP 106/69; PULSE 98; RESP 17; TEMP 36.7; O2SAT 97
[2024-02-23] MEDS: pantoprazole DR 40 mg Tablet PO (08:54)
[2024-02-23] MEDS: aspirin 81 mg EC Tablet PO (08:54)
[2024-02-23] MEDS: diazePAM 5 mg Tablet PO (08:56)
[2024-02-23] MEDS: tizanidine 4 mg Tablet PO (08:56)
[2024-02-23 11:40] VITALS: BP 131/87; PULSE 135; RESP 20; TEMP 36.8; O2SAT 98
[2024-02-23] MEDS: ondansetron 2 mg/ML SDV 2 mL 4 MG IVP (11:46)
--- NOTE | 2024-02-23 12:18 | P.DS_ITS ---
Discharge Providers Date of Admission: 02/21/24 18:44 Date of Discharge: February 23, 2024 Attending Provider at Admission: Anne Marie Smith MD Attending Provider at Discharge: Anay Rodgers MD Diagnoses at Discharge Discharge Diagnosis (1) TIA (transient ischemic attack): Status: Acute (2) Leukocytosis: Status: Resolved (3) Conversion disorder: Status: Acute Reason for Visit Reason for Visit: weakness, tingling in rt arm Hospital Course Hospital Course Patient presented with possible TIA with speech pressured almost robotic. Not a candidate for TNKase or embolectomy. CT head unremarkable, CTA head and neck without any major vessel occlusion. She was placed on aspirin and atorvastatin. Also had a leukocytosis of unclear cause. Complained of multiple episodes of nausea and vomiting. Conversion disorder was suspected at this time. MRI was obtained. Which showed no diffusion abnormalities no acute infarct identified. CT abdomen pelvis no acute findings. Psychiatric consultation was also obtai jenelle. At this time patient was diagnosed with dystonic disorder and functional neurological symptoms. It was recommended that the patient continue to see a therapist. He was recommended to increase her frequency of visits to once a week. She was also given neurology referral at discharge. Stable at discharge. Physical Exam Narrative: General: No acute distress, AO x3 HEENT: PERRLA, pupils bilaterally equal and reactive, pallors not present Chest: Normal vesicular breath sounds, no added sounds, equal good air entry bilaterally CVS: S1-S2 regular, no murmurs, no tachycardia, no gallops, no rubs Abdomen: Soft, nontender, no organomegaly, bowel sounds present Neuro: non focal Discharge Data Studies Completed and Pending Completed Studies During Hospitalization Category Date Time Status CT abdomen pelvis wo con [id number] Routine Cat Scan 02/21/24 18:[address] head thrombolytic [id number] Stat Cat Scan 02/21/24 13:30 Completed CTA head neck [CT angio headneck* [id number]] Stat Cat Scan 02/21/24 14:43 Completed XR chest 1V portable [id number] Stat Exams 02/21/24 13:25 Completed MR head wo con* [id number] Routine MRI 02/22/24 09:30 Completed CV. echo complete* [id number] Routine Ultrasound 02/22/24 09:30 Completed Pending at discharge Category Date Time Status Blood Culture Stat Lab 02/21/24 15:31 Results CSF Culture & Gram Stain Stat Lab 02/21/24 16:01 Results Radiology Impressions Chest X-Ray 02/21/24 13:25 IMPRESSION: No acute findings. Head CT 02/21/24 13:30 IMPRESSION: No acute intracranial abnormality. ASSESSMENT: ASPECTS (Bárbara Stroke Program Early CT Score) is 10. ADDENDUM: 02/21/24 1348 THIS REPORT CONTAINS FINDINGS THAT MAY BE CRITICAL TO PATIENT CARE. The findings were verbally communicated via telephone conference with TIFFANY Chance at 1:46 PM LAY OUT MACHINE OPERATOR on 02/21/2024. The findings were acknowledged and understood. Head/Neck CTA 02/21/24 14:43 IMPRESSION: No large vessel stenosis or occlusion. IMPRESSION: No stenosis or occlusion. REFERENCES: NASCET CRITERIA. The degree of stenosis in the cervical segment of the internal carotid artery is based on NASCET criteria. Normal is no stenosis. Mild is less than 50% stenosis. Moderate is 50-69% stenosis. Severe is 70% to 99% stenosis. Total occlusion is no detectable patent lumen. ADDENDUM: 02/21/24 1530 THIS REPORT CONTAINS FINDINGS THAT MAY BE CRITICAL TO PATIENT CARE. The findings were verbally communicated via telephone conference with TIFFANY CHANCE at 3:27 PM LAY OUT MACHINE OPERATOR on 02/21/2024. The findings were acknowledged and understood. ADDENDUM: 02/21/24 1547 THIS REPORT CONTAINS FINDINGS THAT MAY BE CRITICAL TO PATIENT CARE. The findings were verbally communicated via telephone conference with TIFFANY BAEZ at 3:44 PM LAY OUT MACHINE OPERATOR on 02/21/2024. The findings were acknowledged and understood. Abdomen/Pelvis CT 02/21/24 18:34 IMPRESSION: No acute findings. Head MRI 02/22/24 09:30 IMPRESSION: 1. No diffusion abnormality. No acute infarct identified. 2. Tiny focus of increased signal in the RIGHT kapil. May be associated with minimal, chronic small vessel ischemic disease. 3. No significant atrophy. Laboratory Results WBC 16.01 10^3/uL (3.29-11.43) H 02/22/24 04:46 RBC 5.17 10^6/uL (3.85-5.65) 02/22/24 04:46 Hgb 15.80 g/dL (11.27-16.99) 02/22/24 04:46 Hct 45.5 % (36-47) 02/22/24 04:46 MCV 88.0 fl (85-98) 02/22/24 04:46 MCH 30.6 pg (27-33) 02/22/24 04:46 MCHC 34.7 g/dL (30-55) 02/22/24 04:46 RDW 12.5 % (12.1-15.1) 02/22/24 04:46 Plt Count 444 10^3/cmm (157-399) H 02/22/24 04:46 MPV 8.7 fL (7.4-10.4) 02/22/24 04:46 Neut % (Auto) 59.8 % 02/22/24 04:46 Lymph % (Auto) 29.1 % 02/22/24 04:46 [place] % (Auto) 10.2 % 02/22/24 04:46 Eos % (Auto) 0.1 % 02/22/24 04:46 Baso % (Auto) 0.4 % 02/22/24 04:46 Neut # (Auto) 9.57 10^3/uL (1.8-7.7) H 02/22/24 04:46 Lymph # (Auto) 4.7 10^3/uL (0.8-4.8) 02/22/24 04:46 [place] # (Auto) 1.6 10^3/uL (0.2-0.9) H 02/22/24 04:46 Eos # (Auto) 0.0 10^3/uL (0.0-0.8) 02/22/24 04:46 Baso # (Auto) 0.1 10^3/uL (0.0-0.1) 02/22/24 04:46 Nucleated RBC % (auto) 0 % 02/22/24 04:46 Nucleated RBCs # 0.0 /100WBC 02/22/24 04:46 PT 13.60 SECONDS (12.1-14.9) 02/21/24 17:05 INR 1.01 (0.8-1.2) 02/21/24 17:05 APTT 26.4 SECONDS (23.9-36.7) 02/21/24 17:05 Sodium 136 mmol/L (136-145) 02/22/24 04:46 Potassium 3.1 mmol/L (3.5-5.1) L 02/22/24 04:46 Chloride 95 mmol/L (98-107) L 02/22/24 04:46 Carbon Dioxide 26 mmol/L (22-29) 02/22/24 04:46 Anion Gap 18.1 (5-19) 02/22/24 04:46 BUN 10 mg/dL (6-20) 02/22/24 04:46 Creatinine 0.6 mg/dL (0.5-0.9) 02/22/24 04:46 GFR Calculation 109.6 mL/min (90-130) 02/22/24 04:46 Glucose 101 mg/dL (65-115) 02/22/24 04:46 POC Glucose 108 mg/dL (70-110) 02/21/24 13:20 Estimat Average Glucose 88 02/21/24 13:55 Hemoglobin A1c 4.7 % (4.0-6.0) 02/21/24 13:55 Calculated Osmolality 281 mOsm/kg (285-295) L 02/22/24 04:46 Calcium 9.4 mg/dL (8.5-10.5) 02/22/24 04:46 Total Bilirubin 1.3 mg/dL (0.15-1.2) H 02/22/24 04:46 AST 10 U/L (0-32) 02/22/24 04:46 ALT 13 U/L (0-33) 02/22/24 04:46 Alkaline Phosphatase 114 U/L (35-105) H 02/22/24 04:46 Total Protein 7.3 g/dL (6.6-8.7) 02/22/24 04:46 Albumin 4.4 g/dL (3.5-5.2) 02/22/24 04:46 Globulin 2.9 g/dL (1.3-4.6) 02/22/24 04:46 Triglycerides 79 mg/dL (0-150) 02/21/24 17:40 Cholesterol 148 mg/dL (0-200) 02/21/24 17:40 LDL Cholesterol, Calc 83 mg/dL (50-129) 02/21/24 17:40 HDL Cholesterol 49 mg/dL (60-100) L 02/21/24 17:40 LDL/HDL Ratio 1.69 RATIO (0.00-3.22) 02/21/24 17:40 Cholesterol/HDL Ratio 3.02 mg/dL (0.0-4.40) 02/21/24 17:40 TSH 1.66 uIU/mL (0.27-4.20) 02/21/24 17:05 HCG, Qual Negative (Negative) 02/21/24 13:55 Urine Color Yellow (Yellow) 02/21/24 22:40 Urine Appearance Clear (CLEAR) 02/21/24 22:40 Urine pH 6.0 (5-7) 02/21/24 22:40 Ur Specific [place] 1.084 (1.005-1.030) H 02/21/24 22:40 Urine Protein 2+ (Negative) A 02/21/24 22:40 Urine Glucose (UA) Negative (Normal) 02/21/24 22:40 Urine Ketones 4+ (Negative) 02/21/24 22:40 Urine Blood Trace (Negative) A 02/21/24 22:40 Urine Nitrate Negative (Negative) 02/21/24 22:40 Urine Bilirubin Negative (Negative) 02/21/24 22:40 Urine Urobilinogen 1.0 mg/dL (Negative) 02/21/24 22:40 Ur Leukocyte Esterase Negative (Negative) 02/21/24 22:40 Urine RBC 11-20 /hpf (0-2) H 02/21/24 22:40 Urine WBC 0-5 /hpf (0-5) 02/21/24 22:40 Ur Squamous Epith Cells 0-5 /hpf (0-5) 02/21/24 22:40 Amorphous Sediment Not Reportable 02/21/24 22:40 Urine Bacteria None seen /hpf (NONE) 02/21/24 22:40 Hyaline Casts 0-4 /lpf H 02/21/24 22:40 CSF Appearance Clear (CLEAR) 02/21/24 16:01 CSF Color Colorless (COLORLESS) 02/21/24 16:01 CSF WBC 2 /uL (0-5) 02/21/24 16:01 CSF RBC 1 10^3/uL (0-0) H 02/21/24 16:01 CSF Mononuclear # Auto 0.001 10^3/uL (50-90) L 02/21/24 16:01 CSF Mononuclear WBCs % 50 % (50-90) 02/21/24 16:01 CSF Polynuclear WBCs # 0.001 10^3/uL (0-10) 02/21/24 16:01 CSF Polynuclear WBCs % 50 % (0-10) H 02/21/24 16:01 CSF Diff Comment Yes 02/21/24 16:01 CSF Glucose 57 mg/dL (40-70) 02/21/24 16:01 CSF Total Protein 36 mg/dL (15-45) 02/21/24 16:01 Urine Opiates Screen Positive ng/mL (Negative) H 02/21/24 22:40 Ur Barbiturates Screen Positive ng/mL (Negative) H 02/21/24 22:40 Ur Phencyclidine Scrn Negative ng/mL (Negative) 02/21/24 22:40 Ur Amphetamines Screen Negative ng/mL (Negative) 02/21/24 22:40 U Benzodiazepines Scrn Positive ng/mL (Negative) H 02/21/24 22:40 Urine Cocaine Screen Negative ng/mL (Negative) 02/21/24 22:40 U Marijuana (THC) Screen Positive ng/mL (Negative) H 02/21/24 22:40 Vitals Last Vital Signs Temp 98.2 F 02/23/24 11:40 Pulse 135 H 02/23/24 11:40 Resp 20 H 02/23/24 11:40 BP 131/87 02/23/24 11:40 Pulse Ox 98 02/23/24 11:40 O2 Del Method Room Air 02/23/24 11:40 Discharge Plan Discharge Patient Disposition: Home Condition: Stable Prescriptions: New atorvastatin 40 mg Tablet 40 mg PO BEDTIME Qty: 30 0RF aspirin 81 mg Tablet,Delayed Release (Dr/Ec) 81 mg PO DAILY Qty: 30 0RF Continued albuterol sulfate 90 mcg/actuation HFA aerosol inhaler 2 puff inhalation Q6H PRN (Reason: Shortness Of Breath) pcosbpkznr-ksscrfffyqwlw-tdxu 50-325-40 mg tablet 1 tab PO Q4H PRN (Reason: Headache) diclofenac sodium 75 mg tablet,delayed release (DR/EC) 75 mg PO BID PRN (Reason: Pain) hydroxyzine pamoate [Vistaril] 25 mg capsule 25 mg PO BID PRN (Reason: Anxiety) tizanidine [Zanaflex] 4 mg capsule 4 mg PO TID PRN (Reason: Spasms) pravastatin 40 mg tablet 40 mg PO BEDTIME famotidine 20 mg tablet 20 mg PO DAILY PRN (Reason: Acid Reflux) Held Ozempic 1 mg/dose (4 mg/3 mL) pen injector 2 mg SUBCUT .once weekly Hold Instructions: see pcp Discharge Orders: Discharge Order (Routine); Ordered 02/23/24 Ordered By: Anay Rodgers Referrals: Tyree Toussaint [Other] (Please call to schedule a hospital follow up for 4-7 days.) Angela Ann MD [Physician] - 1 week (We have notified your physician's clinic of the need for a follow-up appointment to be scheduled. If you have not heard from them within the next 2 business days, please call them directly. ) Discharge Diet: Advance as tolerated Patient Instructions: Aspirin (By mouth), Ondansetron (By mouth), Atorvastatin (By mouth), Conversion Disorder (GEN), Opioid Safety Discharge Attestations Time Spent in Discharge Care*: less than 30 min Quality Metrics Clinical Quality Measures [ No reported AMI, CVA or VTE this stay] Coding Level of Care Code Acute Code for [facility] Fwd Diagnoses TIA (transient ischemic attack) G45.9 Leukocytosis D72.829 Conversion disorder F44.9
[2024-02-23] MEDS: lidocaine 2% viscous 15 ML, aluminum-mag hydrox-simethicon 30 ML, sucralfate oral liq 1 GM PO (12:29)
--- NOTE | 2024-02-23 13:52 | PC.OT ---
OT EVALUATION HELD DUE SCHEDULED D/C
--- NOTE | 2024-02-23 15:15 | PC.SLP ---
PASTRY DECORATOR followup and treatment Patient expressed she had difficulty swallowing this morning, felt her swallowing was slow due to tingling in her face. Patient was observed drinking thin liquids through a straw and demonstrated no signs of aspiration. Patient was observed eating li crackers and demonstrated no signs of aspiration. Patients displays slowed speech. Patient expressed it is difficult for her to get her speech out and is aware her speech is different than before she was admitted into the hospital.
[2024-02-23 15:17] VITALS: BP 111/73; PULSE 104; RESP 17; TEMP 36.9; O2SAT 96
[2024-02-23 18:15] VITALS: BP 111/73; PULSE 104; RESP 17; TEMP 36.9; O2SAT 96
== END 2024-02-23 16:55 | disposition home or self-care (01) | DRG 880 ==
LOC: ER 17:41 → MEDSURG 02-22 03:21
PROVIDERS: Admitting Provider Student in an Organized Health Care Education/Training Program; Emergency Provider Emergency Medicine; Visit Provider Internal Medicine
DX: F44.9 Dissociative and conversion disorder, unspecified (principal); F34.1 Dysthymic disorder; F44.4 Conversion disorder with motor symptom or deficit; F43.10 Post-traumatic stress disorder, unspecified; D72.829 Elevated white blood cell count, unspecified; R06.4 Hyperventilation
CPT/HCPCS: 36415; 36416; 70450; 70496; 70498; 70551; 71045; 74176; 80053; 80061; 80306; 80503; 81001; 82945; 82962; 83036; 84157; 84443; 84703; 85025; 85610; 85730; 87040; 87070; 87075; 87205; 89050; 92610; 93005; 93306; 96374; 96375; 97161; 99285; J1200; J2405; J2470; J2765; Q0162

== ENCOUNTER 2025-01-05 14:30 | Outpatient (CLI) | payer MEDICAID, SELFPAY ==
--- NOTE | 2025-01-05 14:35 | MM_ITS ---
WS: [id number] BILATERAL SCREENING DIGITAL TOMOSYNTHESIS MAMMOGRAM WITH CAD HISTORY: SCREENING COMPARISON: 09/04/2023, 06/19/2022 Bilateral CC and MLO views with tomosynthesis and synthetic mammography submitted. Computer aided detection analyzed. Breast composition: There are scattered areas of fibroglandular density. No suspicious masses, microcalcifications or architectural distortion. MM/MM scr BI tomosynthesis [id number] IMPRESSION: BI-RADS: 1 - Negative. FOLLOW UP: 1 Year Follow-up
== END 2025-01-05 14:31 | disposition home or self-care (01) ==
LOC: RAD 14:31
PROVIDERS: Visit Provider Family Medicine
DX: Z12.31 Encounter for screening mammogram for malignant neoplasm of breast (principal); R92.323 Mammographic fibroglandular density, bilateral breasts
CPT/HCPCS: 77063; 77067

== ENCOUNTER → 2025-02-07 13:18 | Outpatient (BNVA) | payer MEDICARE, MEDICAID, SELFPAY | PROVIDERS: Visit Provider Obstetrics & Gynecology | DX: N83.202 Unspecified ovarian cyst, left side (principal); N83.201 Unspecified ovarian cyst, right side | CPT/HCPCS: 76830 ==